=== PATIENT | male | born 1970 | race Caucasian/White ===

== ENCOUNTER 2019-03-31 09:32 | Emergency (ER) | payer MEDICAID ==
[~2019-03-31] VITALS: Ht 177.8 cm; Wt 70.0 kg
[2019-03-31] MEDS ORDERED: MORPHINE SULFATE 4 MG/ML CPJ (NOT FOR IM USE) IV ONE (10:15)
[2019-03-31] MEDS ORDERED: ONDANSETRON HCL 4MG/2ML INJ IV ONE (10:15)
[2019-03-31] MEDS ORDERED: LORAZEPAM 1MG TABLET PO ONE (10:15)
[2019-03-31 10:24] LABS: BASOPHILS % 0.5 % (0.0-2.0); EOSINOPHILS % 0.2 % (0.0-5.0); HEMATOCRIT. 42.9 % (42.0-52.0); HEMOGLOBIN. 14.9 g/dL (14.0-18.0); LYMPHOCYTES % 14.2 % (20.0-50.0); MEAN CORPUSCULAR HEMOGLOBIN 33.4 pg (28.0-32.0); MEAN CORPUSCULAR VOLUME 96.3 fL (80.0-94.0); MEAN PLATELET VOLUME 8.2 fl (7.4-10.4); MONOCYTES % 7.7 % (2.0-8.0); NEUTROPHILS % 77.4 % (40.0-76.0); PLATELET 183 x1000/uL (130-400); RED BLOOD CELL COUNT 4.46 mill/uL (4.7-6.1); RED CELL DISTRIBUTION WIDTH 14.3 % (11.6-14.6)
[2019-03-31 10:30] LABS: CHLORIDE 103 mEq/L (98-107)
[2019-03-31] MEDS ORDERED: KETAMINE HCL 50 MG/ML 10ML IV ONE ×2 (11:00→11:30)
[2019-03-31] MEDS ORDERED: LORAZEPAM 2MG/ML CPJ ONE (11:19)
[2019-03-31] MEDS ORDERED: LORAZEPAM 2MG/ML CPJ IV ONE (11:30)
[2019-03-31 14:25] LABS: CLARITY URINE CLEAR (CLEAR); COLOR URINE DARK YELLOW (YELLOW); KETONES URINE 2+ (NEGATIVE); LEUKOCYTE ESTERASE URINE 1+ (NEGATIVE); NITRITE URINE NEGATIVE (NEGATIVE); OCCULT BLOOD URINE TRACE (NEGATIVE); PH URINE 5.5 (4.5-8.0); PROTEIN URINE 1+ (NEGATIVE); SPECIFIC GRAVITY URINE 1.032 (1.005-1.030)
[2019-03-31 16:45] VITALS: BP 118/77
== END 2019-03-31 18:15 | disposition home or self-care (01) ==
LOC: ER 09:32
DX: T19.4XXA Foreign body in penis, initial encounter (principal); X58.XXXA Exposure to other specified factors, initial encounter; Y93.89 Activity, other specified; Y92.89 Other specified places as the place of occurrence of the external cause; Y99.8 Other external cause status
CPT/HCPCS: 36415; 72170; 80053; 81003; 85025; 96374; 96375; 99152; 99285; J2060; J2270; J2405; J3490; 20520